=== PATIENT | female | born 1965 | race African-American/Black ===

== ENCOUNTER 2024-04-10 10:05 | Emergency (ER) | payer OTHER ==
[~2024-04-10] VITALS: Ht 177.8 cm; Wt 85.0 kg
[2024-04-10 10:45] VITALS: BP 141/73; PULSE 78; RESP 16; TEMP 98; O2SAT 100
[2024-04-10] MEDS ORDERED: SPIR50TA27 PO (10:54)
[2024-04-10] MEDS ORDERED: ASPI-1450 PO (10:54)
[2024-04-10] MEDS ORDERED: BICT1TAB PO (10:54)
[2024-04-10] MEDS ORDERED: OLAN10TA74 PO (10:54)
[2024-04-10] MEDS ORDERED: ESTR20VI7 IM (10:54)
[2024-04-10] MEDS ORDERED: CINA30 PO (10:54)
[2024-04-10] MEDS ORDERED: FAMO20 PO (10:54)
[2024-04-10] MEDS ORDERED: ATOR20TA PO (10:54)
[2024-04-10] MEDS ORDERED: FINA-27 PO (10:54)
[2024-04-10] MEDS: LIDOCAINE 1% 10 ML VIAL SQ ONE (11:12)
[2024-04-10] MEDS: CEPHALEXIN MONOHYDRATE 500 MG CAPSULE PO ONE (12:39)
== END 2024-04-10 13:16 | disposition home or self-care (01) ==
LOC: EMS 10:05
DX: S01.511A Laceration without foreign body of lip, initial encounter (principal); Z79.82 Long term (current) use of aspirin; Z79.899 Other long term (current) drug therapy; Y04.8XXA Assault by other bodily force, initial encounter; Y93.89 Activity, other specified; Y92.89 Other specified places as the place of occurrence of the external cause; Y99.8 Other external cause status
CPT/HCPCS: 99283; 12011; J3490